=== PATIENT | male | born 1955 | race Caucasian/White ===

== ENCOUNTER 2019-05-12 11:42 | Emergency (ER) | payer SELFPAY | END 2019-05-12 12:45 | disposition left against medical advice (07) | LOC: ER 11:42 | DX: Z53.20 Procedure and treatment not carried out because of patient's decision for unspecified reasons (principal) ==

== ENCOUNTER 2019-05-17 15:12 | Emergency (ER) | payer MEDICARE, MEDICAID ==
--- NOTE | 2019-05-17 15:26 | Emergency Department Record ---
History of Present Illness - General Chief complaint: Male Urogenital Problem Stated complaint: BLOOD IN URINE Time Seen by Provider: 05/17/19 15:25 Source: Patient Mode of Arrival: Ambulatory Limitations: No limitations - History of Present Illness Initial comments: 64 yo male presents with blood in his urination one hour ago. This was the first time anything like this has happened. No pain. No injury. No fever, chills, nausea or vomiting. No retention. No abdominal or back pain. No history of renal stones, bladder or prostate disease. He is circumcised. MD Complaint: Other (blood in the urine) -: Hour(s) (1) Location: Penis Radiation: None Severity: Mild Quality: Other (no pain) Consistency: Other (occurred once) Worsens with: Urination Reports: Blood in urine - Related Data Home Medications Medication Instructions Recorded Confirmed Last Taken Amlodipine Besylate [Norvasc] 5 mg PO DAILY 05/17/19 05/17/19 Unknown Aspirin [Aspirin EC] 81 mg PO DAILY 05/17/19 05/17/19 Unknown Clozapine [Clozapine Odt] 200 mg PO BID 05/17/19 05/17/19 Unknown Cyanocobalamin/Folic AC/Vit B6 1 each PO DAILY 05/17/19 05/17/19 Unknown [Virt-Abimael Tablet] Furosemide [Lasix] 20 mg PO DAILY 05/17/19 05/17/19 Unknown Lactulose 10 gm PO BID 05/17/19 05/17/19 Unknown Levothyroxine Sodium [Synthroid] 75 mcg PO DAILY 05/17/19 05/17/19 Unknown Losartan Potassium 50 mg PO DAILY 05/17/19 05/17/19 Unknown Multivit,Calc,Mins/Iron/Folic 1 each PO DAILY 05/17/19 05/17/19 Unknown [Thera M Plus Tablet] Sodium Polystyrene Sulfonate 15 gm PO ASDIR 05/17/19 05/17/19 Unknown Trazodone HCl [Desyrel] 50 mg PO QHS 05/17/19 05/17/19 Unknown Allergies Allergy/AdvReac Type Severity Reaction Status Date / Time No Known Drug Allergies Allergy Verified 05/17/19 15:31 Review of Systems Constitutional: Denies: Chills, Fever, Malaise, Weakness Eyes: Denies: Eye discharge ENT: Denies: Congestion, Throat pain Respiratory: Denies: Cough, Dyspnea, Hemoptysis, Wheezes Cardiovascular: Denies: Chest pain, Syncope Endocrine: Denies: Fatigue Gastrointestinal: Denies: Abdominal pain, Diarrhea, Nausea, Vomiting Genitourinary: Reports: Hematuria. Denies: Discharge, Dysuria, Frequency, Incontinence, Retention, Testicular pain, Testicular mass, Urgency Musculoskeletal: Denies: Arthralgia, Back pain, Myalgia, Neck pain Skin: Denies: Bruising, Change in color, Rash Neurological: Denies: Headache Psychiatric: Denies: Anxiety Hematological/Lymphatic: Denies: Easy bleeding, Easy bruising Physical Exam - General General Appearance: Alert, Oriented x3, Cooperative, No acute distress Limitations: No limitations - Head Head exam: Atraumatic, Normal inspection - Eye Eye exam: Normal appearance. negative: Conjunctival injection - ENT ENT exam: Normal exam Ear exam: Normal external inspection Nasal Exam: Normal inspection Mouth exam: Normal external inspection - Neck Neck exam: Normal inspection - Respiratory Respiratory exam: Normal lung sounds bilaterally. negative: Rhonchi, Stridor, Wheezes - Cardiovascular Cardiovascular Exam: Regular rate, Normal rhythm, Normal heart sounds - GI/Abdominal GI/Abdominal exam: Soft. negative: Distended, Guarding, Tenderness - exam: Circumcision, Normal inspection. negative: Scrotal swelling, Testicular tenderness, Urethral discharge - Extremities Extremities exam: Normal inspection - Back Back exam: Denies: CVA tenderness (R), CVA tenderness (L), Rash noted, Tenderness - Neurological Neurological exam: Alert, Oriented X3 - Psychiatric Psychiatric exam: Normal affect, Normal mood - Skin Skin exam: Dry, Intact, Normal color, Warm Course - Reevaluation(s) Reevaluation #1: 05/17/19 16:14 The CBC was reviewed Hgb is 10.4 The Plt count is normal The UA is normal without blood 05/17/19 16:14 RN reported visually clear UA. 05/17/19 16:23 The CR is 1.6 No old for comparison 05/17/19 16:32 No prior comparisons available on the labs I advised that the patient hydrate well the next several days I also advised recheck of the labs and UA in one week Medical Decision Making - Lab Data Result diagrams: 05/17/19 15:55 05/17/19 15:55 Disposition Disposition: Discharge Clinical Impression: Hematuria Qualifiers: Hematuria type: unspecified type Qualified Code(s): R31.9 - Hematuria, unspecified Disposition: Home, Self-Care Condition: (1) Good Instructions: Hematuria (ED) Additional Instructions: Call your doctor for the next available follow up appointment to recheck the urine if the symptoms return You will need to stay well hydrated the next several days Review this ER visit and the tests performed with your family doctor Return to the ER for a recheck if worse, any new concerns or questions You have mild anemia (low blood count) and mild slowing of the kidney function Call your doctor to recheck your lab tests in one week You should not take your Lasix for the next two days then restart Forms: Patient Portal Access Time of Disposition: 16:18 Quality - Quality Measures Quality Measures: N/A - Blood Pressure Screening Does Patient Have Any of the Following: Active Dx of HTN Blood Pressure Classification: Pre-Hypertensive BP Reading Systolic Measurement: 137 Diastolic Measurement: 78 Screening for High Blood Pressure: Patient Exclusion, Hx of HTN [[id number]] Pre-Hypertensive Follow-up Interventions: Referral to alternative/primary care provider.
[2019-05-17 16:02] LABS: ABSOLUTE NEUTROPHIL COUNT 3.51; BASO % 0.5 % (0-6); EOS % 2.9 % (0-6); GRAN % 64.2 % (47-80); HEMATOCRIT 33.5 % (42.0-52.0); HEMOGLOBIN 10.4 gm/dl (14.0-18.0); LYMPH % 21.4 % (16-45); MEAN CELL VOLUME 88.6 fl (81-97); MEAN CORPUSCULAR HEMOGLOBIN 27.5 pg (27-33); MEAN PLATELET VOLUME 10.4 fl (7.4-10.4); PLATELET COUNT 277 K/uL (130-400); RED BLOOD COUNT 3.78 M/uL (4.40-5.70); RED CELL DISTRIBUTION WIDTH 14.2 % (11.5-14.5); WHITE BLOOD COUNT W/O DIFF 5.5 K/uL (4.2-12.2)
[2019-05-17 16:04] LABS: URINE APPEARANCE CLEAR; URINE BILIRUBIN NEGATIVE (NEGATIVE); URINE BLOOD NEGATIVE (NEGATIVE); URINE COLOR YELLOW; URINE GLUCOSE (UA) NEGATIVE (NEGATIVE); URINE KETONE NEGATIVE (NEGATIVE); URINE LEUKOCYTE ESTERASE NEGATIVE (NEGATIVE); URINE NITRITE NEGATIVE (NEGATIVE); URINE PROTEIN NEGATIVE (NEGATIVE); URINE UROBILINOGEN 0.2 E.U./dL (0.20 - 1.00)
[2019-05-17 16:17] LABS: CREATININE 1.6 mg/dL (0.7-1.2)
[2019-05-17 16:18] LABS: INR 1.1; PARTIAL THROMBOPLASTIN TIME 27.4 SECONDS (24.5-39.1); PROTHROMBIN TIME (PATIENT) 10.8 SECONDS (9.5-12.1)
== END 2019-05-17 16:46 | disposition home or self-care (01) ==
LOC: ER 15:12
DX: R31.0 Gross hematuria (principal); I10 Essential (primary) hypertension
CPT/HCPCS: 80048; 81003; 85025; 85610; 85730; 99284